=== PATIENT | male | born 1935 | race Caucasian/White ===

== ENCOUNTER → 2016-05-01 | Outpatient (CLI) | payer OTHER ==
[~2016-05-01] MED LIST: DILT-113 PO; FLEC50TA20 PO; LEVO100T7 PO; MOME16.7 PO; MULT-190 PO; OMEG10007 PO; SIMV10TA2 PO; TAMS0.4C38 PO; TERA5CAP PO; WARF5TAB7 PO; [UNRECOGNIZED DRUG - OTHER] PO
== END ==
LOC: C.PATHSPEC 17:22
PROVIDERS: ATTEND Urology
DX: C61 Malignant neoplasm of prostate (principal)

== ENCOUNTER → 2016-05-11 | Outpatient (CLI) | payer OTHER | END | disposition home or self-care (01) | LOC: C.LABPBG 14:35 | PROVIDERS: ATTEND Urology | DX: C61 Malignant neoplasm of prostate (principal) ==